=== PATIENT | female | born 1955 | race Caucasian/White ===

== ENCOUNTER 2023-09-02 19:07 | Outpatient (RCR) | payer BC, SELFPAY | END 2023-09-02 23:59 | disposition home or self-care (01) | LOC: RPT 19:07 | PROVIDERS: ATTENDING PHYSICIAN Obstetrics & Gynecology; PRIMARYCARE PHYSICIAN Family Medicine | DX: N99.3 Prolapse of vaginal vault after hysterectomy (principal); N39.0 Urinary tract infection, site not specified; N94.12 Deep dyspareunia; M62.89 Other specified disorders of muscle; Z73.6 Limitation of activities due to disability | CPT/HCPCS: 97014; 97110; 97112; 97140; 97163; 97530 ==

== ENCOUNTER 2023-09-07 06:35 | Day surgery (SDC) | payer BC, SELFPAY ==
[2023-08-25 08:40] VITALS: BMI 23.9
[2023-08-25 08:50] LABS: Hematocrit 42.3 % (37.0-47.0); Mean Corp Hgb Conc. 33.1 g/dL (33.0-37.0); Mean Corpuscular Hgb 29.5 pg (27.0-31.0); Mean Corpuscular Volume 89.1 fL (81.0-99.0); Mean Platelet Volume 9.4 fL (7.4-10.4); Platelet Count 280 10^3/uL (130-400); Red Blood Cell Count 4.75 10^6/uL (4.20-5.40); Red Cell Dist. Width 13.7 % (11.5-14.5); White Blood Cell Count 4.9 10^3/uL (4.8-10.8)
[2023-08-25 10:46] LABS: Blood Urea Nitrogen 17 mg/dl (7-17); Calcium 9.8 mg/dl (8.4-10.2); Carbon Dioxide 29 mmol/L (22-30); Chloride 106 mmol/L (98-107); Estimated Creatinine Clearance 50 ml/min; Glucose 89 mg/dl (70-99); Sodium 138 mmol/L (135-145); eGFR > 60.00
[2023-09-07] VITALS (12 sets, daily range): BP systolic 95–115; BP diastolic 58–82; BMI 23.9
[2023-09-07] MEDS: Pyridium 200 MG PO (09:22)
[2023-09-07] MEDS: NORMOSOL-R 1000 IV (09:23)
[2023-09-07] MEDS: TORADOL 15 MG IV (14:12)
== END 2023-09-07 19:05 | disposition home or self-care (01) ==
LOC: SDS 06:35
PROVIDERS: ATTENDING PHYSICIAN Obstetrics & Gynecology; FAMILY PHYSICIAN Family Medicine
DX: N99.3 Prolapse of vaginal vault after hysterectomy (principal); Y83.8 Other surgical procedures as the cause of abnormal reaction of the patient, or of later complication, without mention of misadventure at the time of the procedure; N94.12 Deep dyspareunia; N95.2 Postmenopausal atrophic vaginitis; N39.3 Stress incontinence (female) (male); N36.41 Hypermobility of urethra
CPT/HCPCS: 57282; 57250; 36415; 80048; 85027; 86850; 86900; 86901; 93005

== ENCOUNTER → 2023-10-14 11:24 | Outpatient (REF) | payer BC, SELFPAY ==
[2023-10-14 19:03] LABS: Urine Albumin Negative (Neg - Trace); Urine Bilirubin Negative (Negative); Urine Character Clear (Clear); Urine Color Yellow; Urine Glucose Negative (Negative); Urine Ketone Negative (Negative); Urine Leukocyte 2+ (Negative); Urine Nitrite Negative (Negative); Urine Occult Blood Negative (Negative); Urine Urobilinogen Negative (Neg - 1+)
[2023-10-14 19:24] LABS: Urine Bacteria Many (Negative); Urine Red Blood Cell None Seen /HPF (0-2); Urine White Cell >100 /HPF (0-5)
== END ==
LOC: CLAB 11:24
PROVIDERS: ATTENDING PHYSICIAN Obstetrics & Gynecology
DX: N39.0 Urinary tract infection, site not specified (principal)
CPT/HCPCS: 81003; 81015; 87086; 87088; 87186

== ENCOUNTER 2023-11-04 19:00 | Outpatient (RCR) | payer OTHER, SELFPAY | END 2023-11-04 23:59 | disposition home or self-care (01) | LOC: RPT 19:00 | PROVIDERS: ATTENDING PHYSICIAN Obstetrics & Gynecology; PRIMARYCARE PHYSICIAN Family Medicine | DX: N99.3 Prolapse of vaginal vault after hysterectomy (principal); N39.41 Urge incontinence; N94.12 Deep dyspareunia; M62.89 Other specified disorders of muscle; R10.2 Pelvic and perineal pain; Z73.6 Limitation of activities due to disability | CPT/HCPCS: 97110; 97140; 97164; 97530 ==

== ENCOUNTER 2023-12-15 18:56 | Outpatient (RCR) | payer OTHER, SELFPAY | END 2023-12-15 23:59 | disposition home or self-care (01) | LOC: RPT 18:56 | PROVIDERS: ATTENDING PHYSICIAN Obstetrics & Gynecology; PRIMARYCARE PHYSICIAN Family Medicine | DX: N99.3 Prolapse of vaginal vault after hysterectomy (principal); N39.41 Urge incontinence; M62.89 Other specified disorders of muscle; N94.12 Deep dyspareunia; R10.2 Pelvic and perineal pain; Z73.6 Limitation of activities due to disability | CPT/HCPCS: 97014; 97112; 97140; 97530 ==

== ENCOUNTER 2024-02-02 12:34 | Outpatient (RCR) | payer OTHER, SELFPAY | END 2024-02-02 23:59 | disposition home or self-care (01) | LOC: RPT 12:34 | PROVIDERS: ATTENDING PHYSICIAN Orthopaedic Surgery; FAMILY PHYSICIAN Family Medicine | DX: M17.11 Unilateral primary osteoarthritis, right knee (principal); M25.561 Pain in right knee; Z73.6 Limitation of activities due to disability; R26.89 Other abnormalities of gait and mobility | CPT/HCPCS: 97110; 97162; 97535 ==

== ENCOUNTER 2024-03-01 19:17 | Outpatient (RCR) | payer OTHER, SELFPAY | END 2024-03-01 23:59 | disposition home or self-care (01) | LOC: RPT 19:17 | PROVIDERS: ATTENDING PHYSICIAN Orthopaedic Surgery; FAMILY PHYSICIAN Family Medicine | DX: M17.11 Unilateral primary osteoarthritis, right knee (principal) | CPT/HCPCS: 97010; 97110 ==

== ENCOUNTER 2024-04-05 19:06 | Outpatient (RCR) | payer OTHER, SELFPAY | END 2024-04-05 23:59 | disposition home or self-care (01) | LOC: RPT 19:06 | PROVIDERS: ATTENDING PHYSICIAN Orthopaedic Surgery; FAMILY PHYSICIAN Family Medicine | DX: M17.11 Unilateral primary osteoarthritis, right knee (principal) | CPT/HCPCS: 97010; 97110; 97530 ==

== ENCOUNTER 2024-05-03 19:13 | Outpatient (RCR) | payer OTHER, SELFPAY | END 2024-05-03 23:59 | disposition home or self-care (01) | LOC: RPT 19:13 | PROVIDERS: ATTENDING PHYSICIAN Orthopaedic Surgery; FAMILY PHYSICIAN Family Medicine | DX: M17.11 Unilateral primary osteoarthritis, right knee (principal); Z73.6 Limitation of activities due to disability; M25.561 Pain in right knee | CPT/HCPCS: 97010; 97110 ==

== ENCOUNTER 2024-06-07 19:16 | Outpatient (RCR) | payer OTHER, SELFPAY | END 2024-06-07 23:59 | disposition home or self-care (01) | LOC: RPT 19:16 | PROVIDERS: ATTENDING PHYSICIAN Orthopaedic Surgery; FAMILY PHYSICIAN Family Medicine | DX: M17.11 Unilateral primary osteoarthritis, right knee (principal); M25.561 Pain in right knee; Z73.6 Limitation of activities due to disability; R26.89 Other abnormalities of gait and mobility | CPT/HCPCS: 97010; 97110; 97530 ==

== ENCOUNTER 2024-06-21 19:23 | Outpatient (RCR) | payer OTHER, SELFPAY | END 2024-06-21 23:59 | disposition home or self-care (01) | LOC: RPT 19:23 | PROVIDERS: ATTENDING PHYSICIAN Orthopaedic Surgery; FAMILY PHYSICIAN Family Medicine | DX: M17.11 Unilateral primary osteoarthritis, right knee (principal); M25.561 Pain in right knee; Z73.6 Limitation of activities due to disability; R26.89 Other abnormalities of gait and mobility | CPT/HCPCS: 97010; 97110 ==

== ENCOUNTER 2024-07-19 19:17 | Outpatient (RCR) | payer OTHER, SELFPAY | END 2024-07-20 15:40 | disposition home or self-care (01) | LOC: RPT 19:17 | PROVIDERS: ATTENDING PHYSICIAN Orthopaedic Surgery; FAMILY PHYSICIAN Family Medicine | DX: M17.11 Unilateral primary osteoarthritis, right knee (principal); M25.561 Pain in right knee; Z73.6 Limitation of activities due to disability; R26.89 Other abnormalities of gait and mobility | CPT/HCPCS: 97110; 97535 ==

== ENCOUNTER → 2024-09-20 06:41 | Outpatient (REF) | payer OTHER, SELFPAY ==
[2024-09-20 08:12] LABS: Urine Albumin Negative (Neg - Trace); Urine Bilirubin Negative (Negative); Urine Character Clear (Clear); Urine Color Yellow; Urine Glucose Negative (Negative); Urine Ketone Negative (Negative); Urine Leukocyte Negative (Negative); Urine Nitrite Negative (Negative); Urine Occult Blood Negative (Negative); Urine Urobilinogen Negative (Neg - 1+)
== END ==
LOC: REG 06:41
PROVIDERS: ATTENDING PHYSICIAN Physician Assistant; FAMILY PHYSICIAN Family Medicine
DX: N39.0 Urinary tract infection, site not specified (principal)
CPT/HCPCS: 36415; 81003; 87086

== ENCOUNTER 2024-11-11 08:37 | Emergency (ER) | payer OTHER, SELFPAY ==
[2024-11-11 08:44] VITALS: BP 126/75
--- NOTE | 2024-11-11 09:52 | ED.GENMED ---
History of Present Illness
General
Chief Complaint: Dizziness
Source: patient
Time Seen by Provider: 11/11/24 09:26
History of Present Illness
History of Present Illness:
69-year-old female presents emergency room complaining of dizziness. Patient has been suffering from intermittent dizziness for the past 4 to 5 days. She was seen by her primary care doctor and referred to ENT. She had an evaluation at ENT
yesterday. During the visit she was put through some maneuvers which helped temporarily. The diagnosis for ENT was benign positional vertigo. This morning the patient feels dizzy again. She could not go to work. She was told not to take
meclizine.
Past History
Past History
ED Past Medical History: GERD (Hiatal hernia), Other (Prolapsed bladder) and Other (One episode of hemorrhagic cystitis November 2016.)
ED Past Surgical History: Gynecological (Hysterectomy) and Urological (bladder sling)
Social History
Tobacco: Non-smoker
Alcohol: Occasional
Personal: Single
Living: alone
Employment: Employed
Family History
Family History: Other (Noncontributory)
Phy Exam
Physical Exam
Physical Exam:
General: Awake, Alert, Oriented X3. No acute distress.
Vitals: unremarkable
Head: Atraumatic
Eyes: Pupils equal, EOMI, mild rotary nystagmus
Throat: Airway intact, no exudates
Neck: Trachea midline
Lungs: Clear and equal b/l
Heart: Regular rate, no murmurs
Abd: Soft, Nontender, No pulsatile mass
Neuro: Nonfocal
Skin: Warm, dry, no rash
Extremities: pulses equal b/l, no edema
Course
Orders/Labs/Results
Orders:
Orders
11/11/24 09:51
CT Head W/o Iv Contrast Urgent
Comment:
Reason For Exam: vertigo
0.9% Sodium Chloride 500 ml [Nss] 500 ml IV BOLUS
11/11/24 09:52
PT Consult [Pt Eval And Treat] Urgent
Treatment: vertigo
Activity Level: As Tolerated
11/11/24 10:01
Basic Metabolic Panel Urgent
Abnormal Lab Results
11/11/24
10:01
BUN 29 H mg/dl
(7-17)
Calcium 10.7 H mg/dl
(8.4-10.2)
11/11/24 10:01
Vital Signs
Initial and Last Documented VS:
Initial Vital Signs
Temp Pulse Resp BP Pulse Ox
97.5 F 88 16 126/75 100
11/11/24 08:44 11/11/24 08:44 11/11/24 08:44 11/11/24 08:44 11/11/24 08:44
Last Documented Vital Signs
Temp Pulse Resp BP Pulse Ox
97.5 F 88 16 115/67 98
11/11/24 08:44 11/11/24 08:44 11/11/24 12:07 11/11/24 12:07 11/11/24 12:07
MDM/Problems Addressed
Differential Diagnosis Includes:
Benign positional vertigo, labyrinthitis, central vertigo
MDM/Problems Addressed:
Patient presents with vertigo. His neurologic exam is intact. Historically it seems very positional. Patient declined meclizine and Valium. Physical therapy consultation placed. Physical therapy came and evaluated the patient. After their
evaluation she felt better and was ready for discharge. Continue outpatient follow-up with physical therapy.
*Radiology
Radiology exam reviewed: radiology read reviewed
*Pulse Oximetry
Patient hypoxic: no
*Critical Care Note
Total Time (30-74mins, 75-104mins- exclusive of procedures): Not Applicable
ED Attending Note
-
Portions of this chart may have been created with voice recognition software.� Occasional wrong word or��sound alike� substitutions may have occurred due to the inherent limitations of voice recognition software.
Discharge Plan
Departure
Patient Disposition: Home (Routine Discharge)
Date of Disposition: 11/11/24
Time of Disposition: 12:41
Patient with high blood pressure during this ER visit?: No
Condition: Good
Discharge Problem:
Benign paroxysmal positional vertigo
Prescriptions:
No Action
calcium carbonate [calcium] 500 MG tablet
500 mg PO DAILY
cholecalciferol (vitamin D3) 1,000 UNITS tablet
1,000 units PO DAILY
Referrals:
Tereza Johnston CRNP [Family Provider] -
Interventions
Interventions:
*Risk Screen - Suicide Last Done: 11/11/24 08:44
*General Assessment Last Done: 11/11/24 10:29
*Neglect/Abuse Screening Last Done: 11/11/24 08:44
*ED- Fall Risk Assessment Last Done: 11/11/24 10:29
*ED COVID-19 Vaccine History Last Done: 11/11/24 10:29
*Nursing Disposition Last Done: 11/11/24 13:21
ED- Neurological Assessment Last Done: 11/11/24 10:29
ED- Cardiac Assessment Last Done: 11/11/24 10:29
ED Swallowing Screen Last Done: 11/11/24 10:29
Discharge Date and Time
Discharge Date/Time: 11/11/24 13:21
Print Language: POLISH
[2024-11-11] MEDS: NSS 500 IV (10:21)
[2024-11-11 10:37] LABS: Blood Urea Nitrogen 29 mg/dl (7-17); Calcium 10.7 mg/dl (8.4-10.2); Carbon Dioxide 30 mmol/L (22-30); Chloride 106 mmol/L (98-107); Glucose 73 mg/dl (70-99); Sodium 145 mmol/L (135-145); eGFR > 60.00
[2024-11-11 11:30] VITALS: BP 120/70; PULSE 70; O2SAT 100
[2024-11-11 12:07] VITALS: BP 115/67
== END 2024-11-11 13:21 | disposition home or self-care (01) ==
LOC: EMR 08:37
PROVIDERS: EMERGENCY PHYSICIAN Emergency Medicine; FAMILY PHYSICIAN Family Medicine
DX: H81.10 Benign paroxysmal vertigo, unspecified ear (principal); K21.9 Gastro-esophageal reflux disease without esophagitis; Z90.710 Acquired absence of both cervix and uterus
CPT/HCPCS: 99284; 96360; 70450; 80048

== ENCOUNTER 2024-11-14 08:19 | Outpatient (RCR) | payer OTHER, SELFPAY | END 2024-11-14 23:59 | disposition home or self-care (01) | LOC: RPT 08:19 | PROVIDERS: ATTENDING PHYSICIAN Nurse Practitioner Primary Care | DX: R42 Dizziness and giddiness (principal); Z73.6 Limitation of activities due to disability; R26.89 Other abnormalities of gait and mobility; Z91.81 History of falling | CPT/HCPCS: 97112; 97163 ==